=== PATIENT | male | born 1965 | race Caucasian/White ===

== ENCOUNTER 2017-08-09 12:31 | Inpatient (IN) | payer OTHER ==
[~2017-08-09] VITALS: Ht 162.6 cm; Wt 90.7 kg
[2017-08-09] VITALS (8 sets, daily range): BP systolic 93–123; BP diastolic 49–76
[~2017-08-09 12:31] MED LIST changes: -IV RINGERS SOLUTION,LACTATED 1,000 ML IV ONE; -LEVO750T31 PO; -LIDOCAINE 2% PF Vial for OR 5 ML VIAL. ONE; -METR250T PO; -PANT40TA3 PO; -PROPOFOL 40 ML IV ONE
[2017-08-09 13:14] LABS: CALCIUM 8.7 mg/dL (8.5-10.1); CREATININE 1.1 mg/dL (0.7-1.3); GFR 70.6; MAGNESIUM 1.6 mg/dL (1.8-2.4); POTASSIUM 3.6 mmol/L (3.5-5.1)
[2017-08-09] MEDS ORDERED: hydrALAZINE 10 MG TABLET PO ONE (13:15)
[2017-08-09] MEDS ORDERED: IOHEXOL 300 MG/ML 75 ML VIAL. IV ONE (13:30)
[2017-08-09] MEDS ORDERED: IV NORMAL SALINE 1,000ML 1,000 ML IV ONE ×2 (13:30→15:30)
[2017-08-09] MEDS ORDERED: MAGNESIUM SULFATE 1GM 100 ML IV ONE ×2 (14:00→14:04)
--- NOTE | 2017-08-09 14:01 | RAD ---
Examination: CT angiogram of the chest History: History of shortness of breath, fever, chills Comparison: None available Technique: Axial CT angiographic images were performed with IV contrast. Coronal and Sagittal 3-D MIP reformats are performed RS Compliance Statement: One or more of the following individualized dose reduction techniques were utilized for this examination: 1. Automated exposure control 2. Adjustment of the mA and/or kV according to patient size 3. Use of iterative reconstruction technique. Findings: The central airways are patent. The visualized thyroid gland grossly appears unremarkable. No radiologically significant mediastinal lymph nodes identified. Diffuse coronary artery calcification is identified. The heart size grossly appears unremarkable. The caliber of the aorta grossly appears unremarkable. Evaluation of the pulmonary artery and its branches is very limited as there is not enough contrast within the pulmonary artery and its branches. Examination was repeated twice with contrast however significant amount of contrast within the pulmonary arteries for pulmonary embolus study could not be obtained. Moderate patchy airspace opacities identified in the left lower lobe and groundglass airspace opacities identified in the left upper lobe of the lung likely pneumonia or atelectasis. Follow-up to resolution. 5 mm nodule identified in the right lower lobe of the lung laterally. Partially visualized hepatomegaly with diffuse decreased attenuation noted throughout the liver likely hepatic steatosis. The visualized adrenal gland grossly appears unremarkable. Partially visualized cyst is identified in the left kidney measuring 2.3 cm likely a cyst. Mild degenerative changes thoracic spine. Impression: 1. Examination is limited for pulmonary embolus as there is not enough contrast within the pulmonary artery and its branches which limits evaluation for pulmonary embolus. If clinical suspicion for pulmonary embolus remains high , a follow-up VQ scan and lower extremity DVT study can be considered. Please note that the exam was repeated twice with 2 doses of contrast. 2. Moderate patchy airspace opacities identified in the left lower lobe and groundglass airspace opacities identified in the left upper lobe of the lung likely pneumonia or atelectasis or aspiration. Follow-up to resolution. 3. 5 mm pulmonary nodule right lower lobe of the lung. Follow-up per Fleischner Society guidelines with follow-up CT in 6-12 months. 4. Hepatomegaly with hepatic steatosis.
[2017-08-09 14:05] LABS: BASO % 0 % (0-3); EOS # 0.1 x10^3/uL (0.0-0.7); EOS % 1 % (0-3); HEMATOCRIT 44.9 % (39.0-53.0); LYMPH # 1.5 x10^3/uL (1.0-4.8); LYMPH % 12 % (24-48); MEAN CORPUSCULAR HEMOGLOBIN 32 pg (25-35); MEAN CORPUSCULAR HGB CONC 36 g/dL (31-37); MEAN CORPUSCULAR VOLUME 91 fL (79-100); MONO # 0.4 x10^3/uL (0.0-1.1); MONO % 3 % (0-9); NEUT # 10.8 x10^3uL (1.8-7.7); NEUT % 84 % (31-73); PLATELET COUNT 199 x10^3/uL (140-400); RED BLOOD COUNT 4.95 x10^6/uL (4.30-5.70); RED CELL DISTRIBUTION WIDTH 13.5 % (11.5-14.5); WHITE BLOOD COUNT 12.9 x10^3/uL (4.0-11.0)
[2017-08-09 14:28] LABS: CREATINE KINASE 50 U/L (39-308)
[2017-08-09] MEDS ORDERED: METOPROLOL TARTRATE 5 MG/5 ML VIAL. IV ONE (14:30)
--- NOTE | 2017-08-09 15:09 | PHYS DOC ---
Past History Past Medical History: GERD, High Cholesterol, Hypertension Past Surgical History: Other Additional Smoking Information: VAPES Alcohol Use: None Drug Use: None Adult General Chief Complaint Chief Complaint: SHORTNESS OF BREATH HPI HPI Patient is a 52 year old M who presents with chills. Jesus Manuel had a colonoscopy this morning without significant problems. After returning home he developed chills and mild shortness of breath. He had no other associated symptoms. He has no exacerbating or alleviating factors. Review of Systems Review of Systems Constitutional: Denies fever Eyes: Denies change in visual acuity, redness, or eye pain [] HENT: Denies nasal congestion or sore throat [] Respiratory: Negative except history of present illness Cardiovascular: No additional information not addressed in HPI [] GI: Denies abdominal pain, nausea, vomiting, bloody stools or diarrhea [] : Denies dysuria or hematuria [] Musculoskeletal: Denies back pain or joint pain [] Integument: Denies rash or skin lesions [] Neurologic: Denies headache, focal weakness or sensory changes [] Endocrine: Denies polyuria or polydipsia [] All other systems were reviewed and found to be within normal limits, except as documented in this note. Family History Family History Jesus Manuel's father had his first heart attack in his 40s and in his 50s Current Medications Current Medications Current Medications Medications (Trade) Dose Ordered Sig/Simona Start Time Stop Time Status Last Admin Dose Admin Hydralazine HCl (Apresoline) 100 mg 1X ONCE 08/09/17 13:15 08/09/17 14:01 DC Iohexol (Omnipaque 300 Mg/ml) 75 ml 1X ONCE 08/09/17 13:30 08/09/17 13:32 DC 08/09/17 13:40 75 ML Magnesium Sulfate/ Dextrose 100 ml @ As Directed STK-MED ONCE 08/09/17 14:04 08/09/17 14:05 DC Metoprolol Tartrate (Lopressor Vial) 5 mg 1X ONCE 08/09/17 14:30 08/09/17 14:31 DC Sodium Chloride 1,000 ml @ 1,000 mls/hr 1X ONCE 08/09/17 13:30 08/09/17 14:29 DC 08/09/17 13:00 1,000 MLS/HR Allergies Allergies Allergies Coded Allergies Type Severity Reaction Last Updated Verified Penicillins Allergy Unknown Rash 08/09/17 Yes Physical Exam Physical Exam Constitutional: Well developed, well nourished, no acute distress, non-toxic appearance. [] HENT: Normocephalic, atraumatic, bilateral external ears normal, oropharynx moist, no oral exudates, nose normal. [] Eyes: EOMI, conjunctiva normal, no discharge. [] Neck: Normal range of motion, no tenderness, supple, no stridor. [] Cardiovascular: regular rhythm, tachycardia Lungs & Thorax: Bilateral breath sounds clear to auscultation [] Abdomen: Bowel sounds normal, soft, no tenderness, no masses, no pulsatile masses. [] Skin: Warm, dry, no erythema, no rash. [] Back: No tenderness, no CVA tenderness. [] Extremities: No tenderness, no cyanosis, no clubbing, ROM intact, no edema. [] Neurologic: Alert and oriented X 3, normal motor function, normal sensory function, no focal deficits noted. [] Psychologic: Affect normal, judgement normal, mood normal. [] Current Patient Data Vital Signs Vital Signs Date Time Temp Pulse Resp B/P (MAP) Pulse Ox O2 Delivery O2 Flow Rate FiO2 08/09/17 14:25 144 20 114/59 (77) 95 Nasal Cannula 3.0 08/09/17 13:04 99.3 Lab Results Laboratory Tests Test 08/09/17 12:52 White Blood Count 12.9 x10^3/uL (4.0-11.0) H Red Blood Count 4.95 x10^6/uL (4.30-5.70) Hemoglobin 16.0 g/dL (13.0-17.5) Hematocrit 44.9 % (39.0-53.0) Mean Corpuscular Volume 91 fL (79-100) Mean Corpuscular Hemoglobin 32 pg (25-35) Mean Corpuscular Hemoglobin Concent 36 g/dL (31-37) Red Cell Distribution Width 13.5 % (11.5-14.5) Platelet Count 199 x10^3/uL (140-400) Neutrophils (%) (Auto) 84 % (31-73) H Lymphocytes (%) (Auto) 12 % (24-48) L Monocytes (%) (Auto) 3 % (0-9) Eosinophils (%) (Auto) 1 % (0-3) Basophils (%) (Auto) 0 % (0-3) Neutrophils # (Auto) 10.8 x10^3uL (1.8-7.7) H Lymphocytes # (Auto) 1.5 x10^3/uL (1.0-4.8) Monocytes # (Auto) 0.4 x10^3/uL (0.0-1.1) Eosinophils # (Auto) 0.1 x10^3/uL (0.0-0.7) Basophils # (Auto) 0.0 x10^3/uL (0.0-0.2) D-Dimer (Gayla) 0.73 mg/L (0.00-0.50) H Sodium Level 143 mmol/L (136-145) Potassium Level 3.6 mmol/L (3.5-5.1) Chloride Level 105 mmol/L (98-107) Carbon Dioxide Level 26 mmol/L (21-32) Anion Gap 12 (6-14) Blood Urea Nitrogen 15 mg/dL (8-26) Creatinine 1.1 mg/dL (0.7-1.3) Estimated GFR (Cockcroft-Gault) 70.6 Glucose Level 181 mg/dL (70-99) H Lactic Acid Level 2.3 mmol/L (0.4-2.0) H Calcium Level 8.7 mg/dL (8.5-10.1) Magnesium Level 1.6 mg/dL (1.8-2.4) L Creatine Kinase 50 U/L (39-308) Creatine Kinase MB (Mass) < 0.5 ng/mL (0.0-3.6) Creatine Kinase MB Relative Index 1.0 % (0-4) Troponin I Quantitative < 0.017 ng/mL (0-0.055) EKG EKG Sinus tachycardia Radiology/Procedures Radiology/Procedures CT Chest with IV contrast - The central airways are patent. The visualized thyroid gland grossly appears unremarkable. No radiologically significant mediastinal lymph nodes identified. Diffuse coronary artery calcification is identified. The heart size grossly appears unremarkable. The caliber of the aorta grossly appears unremarkable. Evaluation of the pulmonary artery and its branches is very limited as there is not enough contrast within the pulmonary artery and its branches. Examination was repeated twice with contrast however significant amount of contrast within the pulmonary arteries for pulmonary embolus study could not be obtained. Moderate patchy airspace opacities identified in the left lower lobe and groundglass airspace opacities identified in the left upper lobe of the lung likely pneumonia or atelectasis. Follow-up to resolution. 5 mm nodule identified in the right lower lobe of the lung laterally. Partially visualized hepatomegaly with diffuse decreased attenuation noted throughout the liver likely hepatic steatosis. The visualized adrenal gland grossly appears unremarkable. Partially visualized cyst is identified in the left kidney measuring 2.3 cm likely a cyst. Mild degenerative changes thoracic spine. Impression: 1. Examination is limited for pulmonary embolus as there is not enough contrast within the pulmonary artery and its branches which limits evaluation for pulmonary embolus. If clinical suspicion for pulmonary embolus remains high , a follow-up VQ scan and lower extremity DVT study can be considered. Please note that the exam was repeated twice with 2 doses of contrast. 2. Moderate patchy airspace opacities identified in the left lower lobe and groundglass airspace opacities identified in the left upper lobe of the lung likely pneumonia or atelectasis or aspiration. Follow-up to resolution. 3. 5 mm pulmonary nodule right lower lobe of the lung. Follow-up per Fleischner Society guidelines with follow-up CT in 6-12 months. 4. Hepatomegaly with hepatic steatosis CT abd/pelvis w/o contrast Multidetector CT imaging was performed following an IV bolus injection of iodinated contrast material. No oral contrast material was administered for this exam. There are mild streaky opacities in the left base, also noted on the CT chest study of earlier in the day. This represents a combination of groundglass opacities and interlobular septal thickening. The right lung base is clear. No pleural fluid is evident. The liver demonstrates diffuse fatty change. There is no evidence of bile duct dilatation. Radiopacities are present in the gallbladder neck compatible with calculi. The gallbladder is not distended. No pericholecystic edema is seen. No pancreatic abnormality is detected. The spleen is of normal size. There is a 4.7 cm cyst in the upper pole of the left kidney. The kidneys show no evidence of obstruction. No adrenal abnormality is detected. There is moderate aortoiliac calcific plaquing no abdominal or pelvic adenopathy is evident. There are multiple prostatic calcifications. The bowel loops are not dilated. There appear to be a couple of tiny colonic diverticula at the splenic flexure level. The appendix is visualized and shows no abnormality. No free air or free fluid is evident in the abdomen or pelvis. IMPRESSION: 1. Hepatic steatosis. 2. Cholelithiasis. 3. Left renal cyst. 4. Minimal colonic diverticulosis. 5. Mild left basilar pulmonary infiltrate. 6. No acute abdominal or pelvic abnormality is detected. Course & Med Decision Making Course & Med Decision Making Pertinent Labs and Imaging studies reviewed. (See chart for details) Dr. Mckeon, the surgeon who performed Jesus Manuel's colonoscopy this morning was contacted by phone. He did not describe any competitions during the procedure. Given that he had a normal CT scan of his abdomen he felt that bowel perforation and/or any other surgical issues were unlikely because of Jesus Manuel symptoms. Dragon Disclaimer Dragon Disclaimer This electronic medical record was generated, in whole or in part, using a voice recognition dictation system. Departure Departure: Impression: Primary Impression: Tachycardia Additional Impression: Hypoxia Disposition: 09 ADMITTED INPATIENT Condition: STABLE Referrals: DOTTIE SCOTT (PCP) Problem Qualifiers KAMILA ARGUETA MD Aug 09, 2017 15:09
--- NOTE | 2017-08-09 15:19 | RAD ---
CT of the abdomen and pelvis without contrast, 08/09/2017: History: Fever, chills after colonoscopy Multidetector CT imaging was performed following an IV bolus injection of iodinated contrast material. No oral contrast material was administered for this exam. There are mild streaky opacities in the left base, also noted on the CT chest study of earlier in the day. This represents a combination of groundglass opacities and interlobular septal thickening. The right lung base is clear. No pleural fluid is evident. The liver demonstrates diffuse fatty change. There is no evidence of bile duct dilatation. Radiopacities are present in the gallbladder neck compatible with calculi. The gallbladder is not distended. No pericholecystic edema is seen. No pancreatic abnormality is detected. The spleen is of normal size. There is a 4.7 cm cyst in the upper pole of the left kidney. The kidneys show no evidence of obstruction. No adrenal abnormality is detected. There is moderate aortoiliac calcific plaquing no abdominal or pelvic adenopathy is evident. There are multiple prostatic calcifications. The bowel loops are not dilated. There appear to be a couple of tiny colonic diverticula at the splenic flexure level. The appendix is visualized and shows no abnormality. No free air or free fluid is evident in the abdomen or pelvis. IMPRESSION: 1. Hepatic steatosis. 2. Cholelithiasis. 3. Left renal cyst. 4. Minimal colonic diverticulosis. 5. Mild left basilar pulmonary infiltrate. 6. No acute abdominal or pelvic abnormality is detected. PQRS Compliance Statement: One or more of the following individualized dose reduction techniques were utilized for this examination: 1. Automated exposure control 2. Adjustment of the mA and/or kV according to patient size 3. Use of iterative reconstruction technique
[2017-08-09] MEDS ORDERED: IV NORMAL SALINE 50ML 50 ML ONE (15:27)
[2017-08-09] MEDS ORDERED: cefTRIAXone SODIUM 1 GM VIAL IV ONE (15:28)
[2017-08-09] MEDS ORDERED: ONDANSETRON PF 4 MG/2 ML VIAL. IV PRN (15:45)
[2017-08-09] MEDS ORDERED: ENOXAPARIN ** NOTE DOSE ** SYRINGE SQ ONE (15:45)
--- NOTE | 2017-08-09 18:16 | EKG ---
[address] [address] Test Date: 2017-08-09 Test Time: 12:46:30 Pat Name: COURTNEY FISHER Department: Room: Gender: M [employer] Forms: NITESH : 1965 Requested By: KMAILA ARGUETA Order Number: [id number] Reading MD: Measurements Intervals [place] Rate: 144 P: 11 VA: 128 QRS: 102 QRSD: 74 T: 27 QT: 260 QTc: 406 Interpretive Statements SINUS TACHYCARDIA RIGHTWARD AXIS R-S TRANSITION ZONE IN V LEADS DISPLACED TO THE LEFT OTHERWISE NORMAL ECG RI6.01 Unconfirmed report No previous ECG available for comparison
[2017-08-09] MEDS ORDERED: PANT40TA3 PO (18:17)
[2017-08-09] MEDS ORDERED: PIPERACILLIN/TAZOBACTAM 3.375 GM in IV NORMAL SALINE 50ML 50 ML IV SCH (18:45)
[2017-08-09] MEDS ORDERED: ACETAMINOPHEN 650 MG/20.3 ML SOLUTION. PO PRN (19:00)
[2017-08-09] MEDS: IV NORMAL SALINE 1,000ML 1,000 ML IV SCH ×2 (19:00→23:04)
[2017-08-09] MEDS: MEROPENEM 1 GM in IV NORMAL SALINE 100ML 100 ML IV SCH (19:29)
[2017-08-09] MEDS: LACTOBACILLUS RHAMNOSUS GG 1 CAPSULE. PO SCH (21:04)
--- NOTE | 2017-08-09 21:29 | HP ---
ADMIT DATE: 08/09/2017 HISTORY OF PRESENT ILLNESS: The patient is a 52-year-old male patient who apparently has had a screening colonoscopy as he is known to have polyps and this in fact was his third colonoscopy. According to him, this colonoscopy went smoothly without any problems, and after returned home, he developed chills and mild shortness of breath. He, however, denied any abdominal pain, cough or phlegm, and denied any fever. On evaluation, he was found to be tachycardic, slightly hypoxic, according to ER physician, and was extensively investigated in the Emergency Room. His lab work showed that he has leukocytosis with a white cell count 12,900. He has had a CT scan of the chest, which basically showed that the central airways are patent. The visualized thyroid gland grossly appears unremarkable. No radiologically significant and mediastinal lymph nodes identified. Has diffuse coronary artery calcification identified. The heart size grossly appears unremarkable. The caliber of the aorta grossly appears unremarkable. Evaluation of the pulmonary artery and its branches is very limited as there is not enough contrast within the pulmonary artery and its branches. Examination was repeated twice with contrast, however, significant amount of contrast within the pulmonary arteries for pulmonary embolus study could not be obtained. Moderate patchy airspace opacities identified in the left lower lobe and ground glass airspace opacities identified in the left upper lobe of the lung, likely pneumonia or atelectasis. Followup to resolution recommended. He has 5 mm nodule identified in the right lower lobe of the lung laterally. Partially visualized hepatomegaly with diffuse decreased attenuation noted throughout the liver, likely hepatic steatosis. The visualized adrenal gland grossly appears unremarkable. Partially visualized cyst is identified in the left kidney measured 2.3 cm, likely a cyst, and mild degenerative changes of thoracic spine. I suspected when the patient returns, the patient likely has perforation of his bowel. However, a CT scan of the abdomen and pelvis without contrast showed that there are mild streaky opacities in the left base, also noted in the CT scan of the chest, representing combination of ground glass opacities and interlobular septal thickening. The right lung base is clear, no pleural fluid is evident. The liver demonstrated diffuse fatty changes. There is no evidence of bile duct dilatation. Radio opacities are present in the gallbladder neck compatible with calculi. The gallbladder itself is not distended. No pericholecystic edema is seen. No pancreatic abnormalities detected. The spleen is of normal size. He has 4.7 cm cyst in the upper lobe of the left kidney. The kidneys showed no evidence of obstruction. The bowel loops are not dilated. There appears to be a couple of tiny colonic diverticula at the splenic flexure level. The appendix is visualized and shows no abnormality. No free air or free fluid is evident in the abdomen and pelvis, and the impression, the patient has hepatic steatosis, cholelithiasis, left renal cyst, minimal colonic diverticulosis, mild left pulmonary infiltrate, no acute abdominal or pelvic abnormality detected. My impression is probably the patient has aspirated when he was sedated and developed aspiration pneumonia, accounting for his lactic acidosis and tachycardia as well as leukocytosis. The patient was admitted to the ICU, given IV fluid and continued on IV antibiotic. Dr. Mckeon was informed, and as there is no evidence of any surgical abdomen, the patient was admitted to this hospital for further treatment. PAST MEDICAL HISTORY: Gastroesophageal reflux disease, hypertension, hyperlipidemia. PAST SURGICAL HISTORY: Significant for colonoscopy x 3 years with polypectomy multiple occasions. He has left wrist fracture, status post open reduction and internal fixation, hernia repair and tendon graft of the left hand. ALLERGIES: He is allergic to PENICILLIN. MEDICATIONS: He is currently on following medications: He is on atorvastatin calcium 40 mg at bedtime, lisinopril 10 mg once a day and Protonix 40 mg once a day. FAMILY HISTORY: He has 1 brother who is older and has diabetes, hyperlipidemia and hypertension. One brother who is younger and he does not know whether he has any medical problem. His father at age of 53 and mother is still alive at age of 77 and has diabetes, hypertension, hyperlipidemia. SOCIAL HISTORY: He is , has son and a daughter. He apparently does not smoke, has not smoked for the last 5 years, but he is vaping. Drinks alcohol occasionally. He does not use any drugs. He is a retired [employer], worked as a civilian. REVIEW OF SYSTEMS: The patient denied any blurring of vision, cataract, glaucoma or macular degeneration. Denied any earache, tinnitus or sensorineural deafness. Denied any nosebleeds, stuffy nose or postnasal drip. Denied any sore throat, sore tongue, toothache, hoarseness of voice or difficulty swallowing. Denied any nausea, vomiting, diarrhea or constipation. Denied any hematemesis, melena. Did complain of hematochezia, and that is reason he underwent all these colonoscopies. He denied any dysuria, frequency or hematuria. Denied any chest pain. Did complain of shortness of breath today after the colonoscopy. Denied any cough, phlegm or hemoptysis. Did complain of chills, but no rigors or fever. PHYSICAL EXAMINATION: GENERAL: When he arrived to the Emergency Room, he apparently was markedly tachycardic with heart rate of 133. He was also hypoxic with an oxygen saturation of only 89% on room air, but there were no pallor, jaundice, cyanosis, or thyromegaly. No jugular venous distension. No limb edema. VITAL SIGNS: Heart rate was 143, blood pressure 140/80, temperature was 99.3, respiratory rate was 18 and oxygen saturation was 89% that improved to 96% on 4 liters of oxygen by nasal cannula. HEAD, EYES, EARS, NOSE AND THROAT: Showed normocephalic, atraumatic. NECK: Supple. HEART: Showed normal first and second heart sounds. No gallop, rub or murmur. CHEST: Clear to auscultation. No crepitation or rhonchi. ABDOMEN: Distended, soft, nontender. No guarding or rigidity. No organomegaly. All hernial orifices intact. Bowel sounds normal. NEUROLOGIC: He is awake, alert, responding appropriately. Cranial nerves intact. EXTREMITIES: He moves extremities without difficulty. He ambulates without assistance or assistive devices. LABORATORY DATA: On arrival to the Emergency Room showed a white cell count 12,900, hemoglobin 16, hematocrit 44, MCV 91, and platelet count of 199,000. His chemistry showed a serum sodium 143, potassium 3.6, chloride 105, bicarbonate 26, anion gap of 12, BUN of 15, creatinine 1.1, estimated GFR was 70 mL per minute. His glucose was 181, calcium was 8.7, magnesium was 1.6. His D-dimer was slightly elevated 0.73 mg/dL. As I stated earlier, a CT angio of the chest showed that the examination was limited for pulmonary embolus as there is not enough contrast within the pulmonary artery and its branches which limits evaluation of pulmonary embolus. His clinical suspicion for pulmonary embolus remains high. Followup VQ scan and lower extremity DVT study can be considered. Moderate patchy airspace opacities identified in the lower lobe and ground glass airspace opacities in the left upper lobe of the lung, likely pneumonia. He was found also have 5 mm pulmonary nodule in the right lower lobe of the lung and hepatomegaly with hepatic steatosis. His CT scan of the abdomen and pelvis without contrast showed hepatic steatosis, cholelithiasis, left renal cyst, minimal colonic diverticulosis, mild left basilar pulmonary infiltrate and no acute abdominal pelvic abnormality detected. PLAN: My plan is to continue with IV antibiotic, probably broaden his antibiotic to cover anaerobes as he might have aspirated and changes IV antibiotic to Zosyn. Continue with the Lovenox for now. We will arrange for him to have a V/Q scan tomorrow and also bilateral venous Doppler ultrasound, repeat his lab work, and decide the further management accordingly. ASHLEY COHN MD DR: OTILIA/sherley JOB#: [id number] / [id number]
[2017-08-09] MEDS: IBUPROFEN 600 MG TABLET. PO PRN (22:00)
[2017-08-10] VITALS (10 sets, daily range): BP systolic 89–142; BP diastolic 58–84
[2017-08-10] MEDS: MEROPENEM 1 GM in IV NORMAL SALINE 100ML 100 ML IV SCH ×3 (04:31→19:45)
[2017-08-10] MEDS: IV NORMAL SALINE 1,000ML 1,000 ML IV SCH ×3 (05:29→21:40)
[2017-08-10 05:36] LABS: HEMATOCRIT 35.7 % (39.0-53.0); HEMOGLOBIN 12.7 g/dL (13.0-17.5); RED BLOOD COUNT 3.9 x10^6/uL (4.30-5.70); RED CELL DISTRIBUTION WIDTH 13.5 % (11.5-14.5); WHITE BLOOD COUNT 11.6 x10^3/uL (4.0-11.0)
[2017-08-10 05:48] LABS: ALBUMIN 2.8 g/dL (3.4-5.0); CALCIUM 7.2 mg/dL (8.5-10.1); GFR 78.8; POTASSIUM 3.6 mmol/L (3.5-5.1); TOTAL BILIRUBIN 1.1 mg/dL (0.2-1.0); TOTAL PROTEIN 5.7 g/dL (6.4-8.2)
[2017-08-10] MEDS: LACTOBACILLUS RHAMNOSUS GG 1 CAPSULE. PO SCH ×2 (07:53→19:45)
[2017-08-10] MEDS ORDERED: PNEUMOC CONJ VACC 23-VALENT 0.5 ML VIAL. VAX IM ONE (09:00)
--- NOTE | 2017-08-10 09:36 | RAD ---
Ventilation/perfusion lung scan. History: Short of breath, fever and chills, indeterminate CT arteriogram of the chest for pulmonary embolus Ventilation study was done using 36 mCi xenon-133. Anterior and posterior imaging was obtained. There was initially decreased ventilation in the left lower lobe which gradually fills in on later images. Perfusion images were done using 5.5 mCi technetium 99m MAA. There is no segmental perfusion defect in the lungs. CT showed a left lower lobe pneumonia. Impression: 1. Low probability for pulmonary embolus.
--- NOTE | 2017-08-10 09:36 | RAD ---
AP chest. History: Short of breath, fever chills, correlation with lung scan AP view was taken of the chest. There is a left lower lobe infiltrate consistent with an acute pneumonia. The heart is normal in size. There is no pleural effusion. Impression: 1. Left lower lobe pneumonia.
--- NOTE | 2017-08-10 12:27 | RAD ---
Bilateral lower extremity venous Doppler History: Short of breath, evaluate for deep venous thrombosis., Chills and fever after colonoscopy Bilateral lower extremity venous Doppler study was performed. Real-time imaging with compression, color-flow imaging and spectral Doppler with augmentation were utilized for evaluation. The common femoral, femoral and popliteal veins were compressible in both lower extremities. There is color flow imaging and the deep veins of both lower extremities. There is flow in the calf veins of both lower extremities with color imaging. There is flow in the profunda femoral veins in both lower extremities with color imaging. Impression: 1. Bilateral lower extremity venous Doppler negative for acute deep venous thrombosis.
[2017-08-10] MEDS: IBUPROFEN 600 MG TABLET. PO PRN (19:45)
[2017-08-10] MEDS ORDERED: ATORVASTATIN CALCIUM 20 MG TABLET PO SCH (21:00)
[2017-08-10] MEDS ORDERED: LISINOPRIL 10 MG TABLET PO SCH (21:00)
[2017-08-10] MEDS ORDERED: PANTOPRAZOLE 40 MG TABLET. PO SCH (21:00)
[2017-08-11] MEDS: IV NORMAL SALINE 1,000ML 1,000 ML IV SCH (04:20)
[2017-08-11] MEDS: MEROPENEM 1 GM in IV NORMAL SALINE 100ML 100 ML IV SCH (04:45)
[2017-08-11 04:59] VITALS: BP 112/72
[2017-08-11 06:51] LABS: CREATININE 0.9 mg/dL (0.7-1.3); POTASSIUM 4.3 mmol/L (3.5-5.1)
[2017-08-11 06:53] LABS: BASO % 1 % (0-3); EOS # 0.2 x10^3/uL (0.0-0.7); EOS % 3 % (0-3); HEMATOCRIT 37.5 % (39.0-53.0); HEMOGLOBIN 13.4 g/dL (13.0-17.5); LYMPH % 28 % (24-48); MEAN CORPUSCULAR HEMOGLOBIN 33 pg (25-35); MEAN CORPUSCULAR HGB CONC 36 g/dL (31-37); MEAN CORPUSCULAR VOLUME 91 fL (79-100); MONO # 0.5 x10^3/uL (0.0-1.1); MONO % 7 % (0-9); NEUT # 4.4 x10^3uL (1.8-7.7); NEUT % 61 % (31-73); PLATELET COUNT 163 x10^3/uL (140-400); RED BLOOD COUNT 4.11 x10^6/uL (4.30-5.70); RED CELL DISTRIBUTION WIDTH 13.4 % (11.5-14.5); WHITE BLOOD COUNT 7.2 x10^3/uL (4.0-11.0)
[2017-08-11] MEDS: LACTOBACILLUS RHAMNOSUS GG 1 CAPSULE. PO SCH (08:23)
[2017-08-11] MEDS ORDERED: PNEUMOC CONJ VACC 23-VALENT 0.5 ML VIAL. VAX IM ONE (09:00)
[2017-08-11] MEDS ORDERED: METR250T PO (10:01)
[2017-08-11] MEDS ORDERED: LEVO750T31 PO (10:01)
--- NOTE | 2017-08-11 11:29 | DS ---
DATE OF DISCHARGE: 08/11/2017 HOSPITAL COURSE: The patient is a 52-year-old male patient who apparently had a screening colonoscopy as he is known to have polyps and this is in fact his third colonoscopy. He apparently has had a colonoscopy done on 04/09/2017 and without any problem. After returning home, he developed chills and mild shortness of breath; however, denied any abdominal pain, cough or phlegm and was extensively evaluated in the Emergency Room and had a CT angio, which was actually done twice as they could not achieve adequate classification of the pulmonary arteries; however, the CT scan showed that he has left-sided pneumonia, most likely aspiration variety and the patient was admitted with sepsis and left lower lobe pneumonia. As he is allergic to penicillin, we started him on meropenem 1 gram IV q. [address] scan of the abdomen showed no evidence of any perforation. The venous Doppler ultrasound as well as V/Q scan was negative for DVT and PE. The patient did very well. He has had no fever, no chest pain, no shortness of breath. His white cell count has come down nicely from 13,000 to 7000. He has been afebrile, hemodynamically stable with normal white cell count, a decision was made to discharge him home to continue the antibiotic treatment orally. PHYSICAL EXAMINATION: GENERAL: When I examined him this morning, he looked well and was clearly in no apparent respiratory distress, pale, but no jaundice, cyanosis, lymphadenopathy or thyromegaly. No jugular venous distension. No lower limb edema. VITAL SIGNS: Her heart rate was 89, blood pressure was 112/72, temperature was 97.7, respiratory rate 18, and oxygen saturation was 95% on room air. HEAD, EYES, EARS, NOSE AND THROAT: Showed normocephalic, atraumatic. NECK: Supple. HEART: Showed normal first and second heart sounds with no gallop, rub or murmur. CHEST: Clear to auscultation. No crepitation or rhonchi. ABDOMEN: Distended, soft, nontender. No guarding or rigidity. No organomegaly. Hernial orifice intact. Bowel sounds normal. NEUROLOGIC: He was awake, alert, responding appropriately. All cranial nerves intact. EXTREMITIES: He moves extremities without difficulty. LABORATORY DATA: Showed a white cell count of 7200, hemoglobin 13, hematocrit 37, MCV 91, and platelet count 263,000. His chemistry showed a serum sodium 143, potassium 4.3, chloride 109, bicarbonate 28, anion gap of 6, BUN 8, creatinine 0.9, estimated GFR was 89 mL per minute, his glucose 155 and calcium was 8. DISCHARGE MEDICATIONS: He was discharged home to continue on following medication: Levofloxacin 750 mg once a day for 7 days, metronidazole for Flagyl 500 mg 3 times a day, atorvastatin 40 mg at bedtime, lisinopril 10 mg at bedtime and Protonix 40 mg once a day. FINAL DISCHARGE DIAGNOSES: Aspiration pneumonia, acute hypoxic respiratory failure, sepsis, status post colonoscopy with polypectomy, hypertension, hyperlipidemia, gastroesophageal reflux disease. ASHLEY COHN MD DR: OTILIA/sherley JOB#: [id number] / [id number]
--- NOTE | 2017-08-12 04:26 | PN ---
DATE: 08/10/2017 SUBJECTIVE: The patient is sitting up in his bed, eating his lunch comfortably, in no apparent distress. Questioning him, he denied any complaint. Nursing staff did not voice any concern and stated that he had an uneventful night. PHYSICAL EXAMINATION: GENERAL: When I examined him, he looked well and was clearly in no apparent respiratory distress, no pallor, jaundice, cyanosis, or thyromegaly. No jugular venous distension. No limb edema. VITAL SIGNS: His heart rate was 84, blood pressure 140/77, temperature was 98.4, respiratory rate was 18 and oxygen saturation was 96% on room air. HEAD, EYES, EARS, NOSE AND THROAT: Showed normocephalic, atraumatic. NECK: Supple. HEART: Showed normal first and second sounds. No gallop, rub or murmur. CHEST: Clear to auscultation. No crepitation or rhonchi. ABDOMEN: Distended, soft, nontender. NEUROLOGIC: He was awake, alert, responding appropriately. Cranial nerves intact. He moves extremities without difficulty, ambulates without assistance or assistive devices. His intake was 4495, output was 750. LABORATORY DATA: Her lab work this morning showed a white cell count 11,600; hemoglobin 12.7; hematocrit 35.7; MCV 92; and platelet count of 152,000. His chemistry showed a serum sodium 144, potassium 3.6, chloride 110, bicarbonate 25, anion gap of 9, BUN 12, creatinine 1, estimated GFR was 79 mL per minute. His glucose 124, calcium was 7.2. Total bilirubin, AST, ALT, alkaline phosphatase were normal. Total protein was 5.7, albumin 2.8. His pulmonary perfusion and ventilation scan showed a low probability for pulmonary embolus, did have bilateral lower extremity venous Doppler ultrasound, results are still pending. Chest x-ray showed that there is left lower lobe infiltrate consistent with acute pneumonia. The heart is normal in size. There is no pleural effusion. ASSESSMENT: Left lower lobe pneumonia, most likely due to aspiration as he underwent colonoscopy yesterday under conscious sedation. PLAN: Obviously to continue with IV Zosyn and he is definitely much improved today. His white cell count is trending down. His heart rate is down. He is now on room air, maintaining his oxygen sat 96%. I will repeat all his labs tomorrow morning and probably can be discharged home to continue on oral medication. ASHLEY COHN MD DR: OTILIA/sherley JOB#: [id number] / [id number]
== END 2017-08-11 10:31 | disposition home or self-care (01) | DRG 871 ==
LOC: ER 12:31 → ICU 16:18
PROVIDERS: ADMIT Internal Medicine; ATTEND Internal Medicine
DX: A41.9 Sepsis, unspecified organism (principal); J69.0 Pneumonitis due to inhalation of food and vomit; J96.01 Acute respiratory failure with hypoxia; E78.5 Hyperlipidemia, unspecified; I10 Essential (primary) hypertension; I25.10 Atherosclerotic heart disease of native coronary artery without angina pectoris; K21.9 Gastro-esophageal reflux disease without esophagitis; K76.0 Fatty (change of) liver, not elsewhere classified; N28.1 Cyst of kidney, acquired; K57.30 Diverticulosis of large intestine without perforation or abscess without bleeding; Z82.49 Family history of ischemic heart disease and other diseases of the circulatory system; Z83.3 Family history of diabetes mellitus; Z88.0 Allergy status to penicillin; Z87.81 Personal history of (healed) traumatic fracture
CPT/HCPCS: 36415; 71010; 71275; 74176; 78582; 80048; 80053; 82553; 83605; 83735; 84484; 85025; 85027; 85379; 87040; 87641; 90732; 93005; 93970; 96374; A9540; A9558; J0696; J1650; J2185; J3475; Q9967; J7030

== ENCOUNTER → 2017-08-09 | Day surgery (SDC) | payer OTHER ==
[~2017-08-09] MED LIST: ATOR40TA PO; IV RINGERS SOLUTION,LACTATED 1,000 ML IV ONE; LEVO750T31 PO; LIDOCAINE 2% PF Vial for OR 5 ML VIAL. ONE; LISI10TA2 PO; METR250T PO; PANT40TA3 PO; PROPOFOL 40 ML IV ONE
== END | disposition home or self-care (01) ==
LOC: SURG 06:42
PROVIDERS: ATTEND Surgery
DX: D12.4 Benign neoplasm of descending colon (principal); K63.5 Polyp of colon
CPT/HCPCS: 45380; 45385; 88305; J2704; J7120; J2001